=== PATIENT | female | born 2000 | race Caucasian/White ===

== ENCOUNTER → 2024-12-27 10:04 | Outpatient (REF) | payer OTHER, SELFPAY | LOC: RAD 10:04 | PROVIDERS: ATTENDING PHYSICIAN Family Medicine | DX: N92.6 Irregular menstruation, unspecified (principal) | CPT/HCPCS: 76856 ==

== ENCOUNTER 2025-01-30 16:56 | Outpatient (RCR) | payer OTHER, SELFPAY | END 2025-01-30 23:59 | disposition home or self-care (01) | LOC: RPT 16:56 | PROVIDERS: ATTENDING PHYSICIAN Orthopaedic Surgery; FAMILY PHYSICIAN Family Medicine | DX: S52.531D Colles' fracture of right radius, subsequent encounter for closed fracture with routine healing (principal); M25.531 Pain in right wrist; Z73.6 Limitation of activities due to disability; V49.9XXD Car occupant (driver) (passenger) injured in unspecified traffic accident, subsequent encounter | CPT/HCPCS: 97110; 97140; 97161; 97535 ==

== ENCOUNTER 2025-02-13 17:49 | Outpatient (RCR) | payer OTHER, SELFPAY | END 2025-02-14 07:40 | disposition home or self-care (01) | LOC: RPT 17:49 | PROVIDERS: ATTENDING PHYSICIAN Orthopaedic Surgery; FAMILY PHYSICIAN Family Medicine | DX: S52.531D Colles' fracture of right radius, subsequent encounter for closed fracture with routine healing (principal); M25.531 Pain in right wrist; Z73.6 Limitation of activities due to disability; V49.9XXD Car occupant (driver) (passenger) injured in unspecified traffic accident, subsequent encounter | CPT/HCPCS: 97110; 97140; 97535 ==

== ENCOUNTER → 2025-10-23 10:43 | Outpatient (REF) | payer OTHER, SELFPAY | LOC: HWRAD 10:43 | PROVIDERS: ATTENDING PHYSICIAN Family Medicine | DX: R10.32 Left lower quadrant pain (principal); R31.29 Other microscopic hematuria | CPT/HCPCS: 74176 ==

== ENCOUNTER → 2025-10-29 13:17 | Outpatient (REF) | payer OTHER, SELFPAY | LOC: HWRAD 13:17 | PROVIDERS: ATTENDING PHYSICIAN Nurse Practitioner Adult Health; FAMILY PHYSICIAN Family Medicine | DX: R10.20 Pelvic and perineal pain unspecified side (principal) | CPT/HCPCS: 76856 ==